=== PATIENT | male | born 1995 | race Hispanic/Latino ===

== ENCOUNTER 2022-10-27 04:49 | Emergency (ER) | payer SELFPAY ==
[2022-10-27] VITALS (35 sets, daily range): BP systolic 105–126; BP diastolic 59–87; PULSE 70–99; RESP 12–24; TEMP 36.7; O2SAT 94–100
--- NOTE | ~2022-10-27 | XR_ITS ---
Portable chest x-ray Comparison: None Clinical History: Shortness of breath Findings: Lungs are clear, without focal consolidation or pleural effusion. Cardiomediastinal silho uette is mildly prominent, possibly due to AP technique. Bones and soft tissues are unremarkable. Impression: Clear lungs. Reviewed, dictated and finalized at location . Impression: Clear lungs.
--- NOTE | 2022-10-27 05:11 | ECG_ITS ---
Measurements Intervals [place] Rate: 90 P: 26 TN: 164 QRS: 8 QRSD: 103 T: 14 QT: 354 QTc: 433 Interpretive Statements SINUS RHYTHM MINIMAL Q WAVES- HIGH LATERAL LEADS BORDERLINE ECG NO PREVIOUS ECG AVAILABLE FOR COMPARISON Electronically Signed On 10-27-2022 6:38:18 CDT by Jaxon Cisneros D.O.
--- NOTE | 2022-10-27 05:20 | ED.GENADULT ---
HPI - General Adult General Chief complaint: Shortness of Breath/Dyspnea <Casper Luna MD - Last Filed: 10/27/22 05:21> Stated complaint: sick <Casper Luna MD - Last Filed: 10/27/22 05:21> Time Seen by Provider: 10/27/22 05:08 <Casper Luna MD - Last Filed: 10/27/22 05:21> History of Present Illness HPI narrative: Patient a 27-year-old gentleman who presents the emergency department with chief complaint of shortness of breath. Patient reports that he has been having some shortness of breath particular with coughing for the last week this evening the patient had been out drinking and was detained by the [facility] police and was found to be intoxicated during the traffic stop the patient stated that he was short of breath and EMS was called and [facility] released the patient into the custody of the EMS service. <Casper Luna MD - Last Filed: 10/27/22 05:21> Patient a 27-year-old gentleman who presents to the emergency department with chief complaint of shortness of breath. Patient reports that he has been having some shortness of breath particular with coughing for the last week this evening the patient had been out drinking and was detained by the [facility] police and was found to be intoxicated during the traffic stop the patient stated that he was short of breath and EMS was called and [facility] police released the patient into the custody of the EMS service. <Gera Vasquez MD - Last Filed: 10/27/22 17:50> Related Data Allergies/adverse reactions: Allergies Allergy/AdvReac Type Severity Reaction Status Date / Time No Known Allergies Allergy Verified 10/27/22 05:26 <Casper Luna MD - Last Filed: 10/27/22 05:21> Review of Systems Review of Systems: A 10 system review of systems was completed on the patient and is negative except for what is stated in the HPI. Nursing and ancillary documentation was reviewed. <Casper Luna MD - Last Filed: 10/27/22 05:21> Exam Narrative: GENERAL: Well-appearing, well-nourished, and in no acute distress. HEAD: Normocephalic, atraumatic. EYES: PERRLA and EOMI. ENT: Nares clear, no rhinorrhea or epistaxis. Mucous membranes moist. NECK: Supple. CHEST: Clear to auscultation. No respiratory distress. HEART: Regular rate and rhythm. No murmur heard. Normal peripheral pulses. ABDOMEN: Soft, nontender, nondistended, normal active bowel sounds. EXTREMITIES: Normal range of motion. No edema. SKIN: Warm, dry, no rash. NEURO: No focal deficits. Alert and oriented x3. PSYCH: Normal mood and affect. <Casper Luna MD - Last Filed: 10/27/22 05:21> Course Reevaluation(s) Reevaluation #1: This is a 27-year-old male presenting for evaluation of alcohol intoxication and shortness of breath. Patient care was signed out to me by Dr. Luna with COVID test pending. Patient's COVID was negative. Patient's blood alcohol was elevated upon arrival to the emergency department. On reevaluation patient was more alert and appropriate and able to ambulate without difficulty. Patient denies any complaints at this time. Family member was contacted and they are willing to come pick the patient up. Patient will be discharged to a sober family member. <Gera Vasquez MD - Last Filed: 10/27/22 17:50> Vital Signs Vital signs: Vital Signs Temperature 98.0 F 10/27/22 04:59 Pulse Rate 99 10/27/22 04:59 Respiratory Rate 17 10/27/22 04:59 Blood Pressure 126/87 10/27/22 04:59 Pulse Oximetry 97 10/27/22 04:59 Temperature 98.0 F 10/27/22 04:59 Pulse Rate 76 10/27/22 11:41 Respiratory Rate 18 10/27/22 11:41 Blood Pressure 121/76 10/27/22 11:41 Pulse Oximetry 98 10/27/22 11:41 Oxygen Delivery Room Air 10/27/22 05:11 <Casper Luna MD - Last Filed: 10/27/22 05:21> Vital Signs Temperature 98.0 F
[2022-10-27 05:21] LABS: Basophils Percent Auto 0.3 % (0.2-1.2); Eosinophils Absolute Auto 0.1 K/mm3 (0-0.3); Eosinophils Percent Auto 0.8 % (0-4.4); Hematocrit 44.3 % (42.0-52.0); Hemoglobin 15.2 g/dL (14.0-18.0); Immature Granulocyte Absolute 0.03 K/mm3 (0.00-0.031); Immature Granulocyte Percent A 0.4 % (0-0.5); Lymphocytes Percent Auto 34.7 % (18.3-44.2); Mean Corpuscular HGB Conc 34.3 g/dl (32-36); Mean Corpuscular Hemoglobin 30.2 pg (26-34); Mean Corpuscular Volume 87.9 fl (80-100); Mean Platelet Volume 9.3 fl (7.4-10.4); Monocytes Absolute Auto 0.4 K/mm3 (0.1-0.6); Monocytes Percent Auto 5.3 % (2.6-8.5); Neutrophils Absolute Auto 4.6 K/mm3 (1.3-6.7); Neutrophils Percent Auto 58.5 % (45.5-73.1); Platelet Count Result 273 k/mm3 (150-375); Red Blood Count 5.04 M/mm3 (4.6-6.20); Red Cell Distribution Width 13.2 % (11.5-14.5); White Blood Count 7.8 K/mm3 (4.5-10.0)
[2022-10-27 05:31] LABS: Alanine Aminotransferase 46 U/L (6-50); Albumin Level 5.4 g/dL (3.5-5.1); Alkaline Phosphatase 60 U/L (38-126); Anion Gap 16 mmol/L (8-16); Aspartate Amino Transferase 39 U/L (17-59); Bilirubin,Total 0.7 mg/dL (0.2-1.3); Blood Urea Nitrogen 11 mg/dL (9-20); Calcium 9.4 mg/dL (8.4-10.2); Carbon Dioxide 20 mmol/L (22-30); Chloride 106 mmol/L (98-107); Estimated Glomerular Filt Rate > 60; Ethanol 205 mg/dL (<10); Glucose 110 mg/dL (65-110); Lipase 131 U/L (23-300); Potassium 3.6 mmol/L (3.4-5.0); Sodium 142 mmol/L (137-145)
[2022-10-27 05:35] LABS: INR 1.1; Partial Thromboplastin Time 28.1 SECONDS (22.3-36.8); Prothrombin Time 13.7 Seconds (11.1-14.7)
[2022-10-27 05:42] LABS: NT Pro B Type Natriuretic Pept < 20 pg/mL (19.9-100); Troponin I < 0.012 ng/mL (0.000-0.034)
--- NOTE | 2022-10-27 06:04 | PC.NURSE ---
0604 Spoke with ISP Nora Castro. Stated that pt family was at the station and instructed family to go to [facility]. Nora stated that he will mail pt his paperwork. Pt is currently not in police custody.
[2022-10-27 07:07] LABS: Influenza A QL RT-PCR Negative (Negative); Influenza B QL RT-PCR Negative (Negative); SARS-CoV-2 RNA PCR Negative
--- NOTE | 2022-10-27 07:15 | PC.NURSE ---
Patient report received from KING Olguin. All questions answered and care of patient assumed. Patient resting comfortably in stretcher with call-light in reach. NAD. Patient appears to be asleep with regular non-labored respirations. VSS.
== END 2022-10-27 11:43 | disposition home or self-care (01) ==
PROVIDERS: Emergency Medicine; Emergency Provider Emergency Medicine
DX: R05.9 Cough, unspecified (principal); F10.129 Alcohol abuse with intoxication, unspecified; Y90.7 Blood alcohol level of 200-239 mg/100 ml; Z20.822 Contact with and (suspected) exposure to COVID-19
CPT/HCPCS: 36415; 71045; 80053; 80307; 83690; 83880; 84484; 85025; 85610; 85730; 87636; 93005; 99283